=== PATIENT | female | born 1975 | race Caucasian/White ===

== ENCOUNTER 2025-07-05 16:05 | Outpatient (OUT) | payer BC, SELFPAY ==
--- OUTSIDE RECORDS SUMMARY | 2025-06-22 12:30 | XMS_ITS | Encounter Summary ---
Author Organization [facility] tem Address [id number] [address] [place] [address] Care Team Providers Care Chief Warden Name Role Phone Xin Wagoner MD Primary Care Provider [phone] Encounter Details Date Type Department Care Team (Latest Contact Info) Description 06/22/2025 12:30 PM EDT - 06/22/2025 12:59 PM EDT Hospital Encounter [facility] - Mammography/DEXA Imaging [address] [place] [phone] Abnormal mammogram Discharge Disposition: Home Social History Tobacco Use Types Packs/Day Years Used Date Smoking Tobacco: Former Cigarettes 1 14 0 01/30/1990 - 01/31/2004 Smokeless Tobacco: Never Alcohol Use Standard Drinks/Week Comments Yes 1 (1 standard drink = 0.6 oz pur e alcohol) PHQ-2 Answer Date Recorded Total Score 6 05/17/2025 Childcare Answer Date Recorded Childcare Unknown 03/18/2019 Employment Answer Date Recorded Employment Unknown 03/18/2019 Hunger Screening Answer Date Recorded Within the past 12 months we worried whether our food would run out before we got money to buy more. Never True 04/06/2025 Within the past 12 months th e food we bought just didn't last and we didn't have money to get more. Never True 04/06/2025 Purpose - Life Answer Date Recorded Purpose and direction in life Unknown Comments No Sex and Gender Information Value Date Recorded Sex Assigned at Not on file Legal Sex Female 11:42 AM EDT Gender Identity Not on file Sexual Orientation Not on file documented as of this encounter Medications at Time of Discharge PARoxetine (PAXIL) 20 mg tablet Take 1 tablet (20 mg total) by mouth in the morning. 30 tablet 11 05/17/2025 propranoloL (INDERAL) 10 mg tablet Take 1 tablet (10 mg total) by mouth 3 (three) times a day. rizatriptan (MAXALT) 10 mg tablet Take 1 tablet (10 mg total) by mouth in the morning. 11/12/2024 venlafaxine XR (EFFEXOR-XR) 75 mg 24 hr capsuleIndication s:Chronic migraine without aura without status migrainosus, not intractable,Vesti bular migraine Take 2 capsules (150 mg total) by mouth daily. 60 capsule 5 03/10/2021 documented as of this encounter Plan of Treatment Upcoming Encounters Date Type Department Care Team (Late st Contact Info) Description 07/20/2025 8:30 AM EDT Office Visit [facility] [address] [place] [phone] Blank Savage MD [address] [place] [address] documented as of this encounter Procedures Procedure Name Priority Date/Time Associated Diagnosis Comments MAMM DIAGNOSTIC UNILAT RT W CAD Routine 06/22/2025 12:44 PM EDT Abnormal mammogram documented in this encounter Results * (ABNORMAL) Mammography diagnostic unilateral right with CAD (06/22/2025 12:44 PM EDT) Anatomical Region Laterality Modality Breast Right Mammography 06/22/2025 1:55 PM EDT Narrative 06/22/2025 2:00 PM EDT CAITLIN THOMPSON 1975 [id number], [id number], [id number] EXAM: MAMM DIAGNOSTIC UNILAT RT W CAD, US BREAST RT LIMITED, US BREAST LT LIMITED, 06/22/2025 12:33 PM CLINICAL INDICATIONS: Abnormal mammogram, COMPARISON: Prior mammographic images from 11/03/2024 and older studies. TECHNIQUE: Supplemental views of the right breast were obtained for diagnostic workup. Digital tomosynthesis images were obtained, with creation of synthetic 2D views. Computer aided detection was utilized. FINDINGS: The breasts are heterogeneously dense, which may obscure small masses. Architectural distortion is present in the right breast 12:00 region, more prominent than on the previous study. This appears to be centered 2 to 3 cm from the nipple. There are no other suspicious masses, calcifications, or areas of architectural distortion. Bilateral Breast Ultrasound, Limited TECHNIQUE: Multiple real-time vee-scale images of the right breast in the retroareolar region were performed. Follow-up ultrasound images the left breast in the 6:00 region were also performed. Color Doppler was utilized to assess vascular flow. FINDINGS: Ultrasound images of the right breast centered at the 12:00 region show areas of irregularity measuring up to 1 cm most notably in the 12:00 region. There is no definite correlate with the mammographic finding. The breast tissue appears dense. Imaging of the left proximal was targeted to the 6:00 region in the area of previous complex cystic abnormality. An ovoid mass has a slightly lobulated margins with some areas of posterior acoustic enhancement and shadowing. On real-time evaluation of this is felt to be primarily anechoic. No color Doppler flow is demonstrated within the area. It currently measures 1.1 x 0.8 x 0.5 cm. Previous measurements were 1.3 x 1.2 x 0.9 cm. COMBINED IMPRESSION: 1. Architectural distortion in the right breast. Stereotactic biopsy recommended for further evaluation. 2. Complex cystic lesion in the left breast 6:00 region appears slightly smaller than on the previous study. Six-month follow-up evaluation recommended for further assessment BI-RADS: BI-RADS 4 - Suspicious RECOMMENDATION: Biopsy is recommended. Results and recommendations were discussed with the patient. Finalized by Kyle Edmondson MD on 06/22/2025 2:00 PM 4 c BIOPSY FDA Accredited Performing Facility: [facility] - Mammography/DEXA Imaging [address] [facility] [address] Procedure Note Kyle Edmondson MD - 06/22/2025 CAITLIN THOMPSON 1975 [id number], [id number], [id number] EXAM: MAMM DIAGNOSTIC UNILAT RT W CAD, US BREAST RT LIMITED, US BREAST LTLIMITED, 06/22/2025 12:33 PM CLINICAL INDICATIONS: Abnormal mammogram, COMPARISON: Prior mammographic images from 11/03/2024 and older studies. TECHNIQUE: Supplemental views of the right breast were obtained for diagnosticworkup. Digital tomosynthesis images were obtained, with creation ofsynthetic 2D views. Computer aided detection was utilized. FINDINGS: The breasts are heterogeneously dense, which may obscure small masses. Architectural distortion is present in the right breast 12:00 region, moreprominent than on the previous study. This appears to be centered 2 to 3cm from the nipple. There are no other suspicious masses, calcifications, or areas ofarchitectural distortion. Bilateral Breast Ultrasound, Limited TECHNIQUE: Multiple real-time vee-scale images of the right breast in theretroareolar region were performed. Follow-up ultrasound images the leftbreast in the 6:00 region were also performed. Color Doppler was utilizedto assess vascular flow. FINDINGS: Ultrasound images of the right breast centered at the 12:00 region showareas of irregularity measuring up to 1 cm most notably in the 12:00region. There is no definite correlate with the mammographic finding. Thebreast tissue appears dense. Imaging of the left proximal was targeted to the 6:00 region in the areaof previous complex cystic abnormality. An ovoid mass has a slightlylobulated margins with some areas of posterior acoustic enhancement andshadowing. On real-time evaluation of this is felt to be primarilyanechoic. No color Doppler flow is demonstrated within the area. It currently measures 1.1 x0.8 x 0.5 cm. Previous measurements were 1.3 x 1.2 x 0.9 cm. COMBINED IMPRESSION: 1. Architectural distortion in the right breast. Stereotactic biopsyrecommended for further evaluation. 2. Complex cystic lesion in the left breast 6:00 region appears slightlysmaller than on the previous study. Six-month follow-up evaluationrecommended for further assessment BI-RADS: BI-RADS 4 - Suspicious RECOMMENDATION: Biopsy is recommended. Results and recommendations were discussed with the patient. Finalized by Kyle Edmondson MD on 06/22/2025 2:00 PM 4 c BIOPSY FDA Accredited Performing Facility: [facility] - Mammography/DEXA Imaging [address] [facility] [address] Xin Wagoner MD IMG MAMMOGRAPHY ORDERABLES Fin al Result documented in this encounter Visit Diagnoses Diagnosis Abnormal mammogram Abnormal mammogram, unspecified documented in this encounter Additional Health Concerns Assessment Noted Time PHQ-9 Depression Total Score: 6 05/17/20 25 8:23 AM EDT A Body Mass Index follow-up plan has been documented for the patient 03/10/2021 4:36 PM EDT documented as of this encounter Care Teams Chief Warden Relationship Specialty Start Date End Date Xin Wagoner MD [address] [place] [id number] PCP - General Family Medicine 03/30/25 documented as of this encounter
--- OUTSIDE RECORDS SUMMARY | 2025-06-22 13:00 | XMS_ITS | Encounter Summary ---
Author Organization [facility] tem Address [id number] [address] [place] [address] Care Team Providers Care Loader Demolder Name Role Phone Xin Wagoner MD Primary Care Provider Encounter Details Date Type Department Care Team (Latest Contact Info) Description 06/22/2025 1:00 PM EDT - 06/22/2025 11:59 PM EDT Hospital Encounter [facility] - Ultrasound [address] [place] [address] Mass of breast, unspecified laterality; Abnormal mammogram Discharge Disposition: Home Social History [...] EDT Office Visit [facility] [address] [place] [address] Blank Savage MD [address] [place] [address] documented as of this encounter Procedures Procedure Name Priority Date/Time Associated Diagnosis Comments US BREAST RT LIMITED Routine 06/22/2025 1:19 PM EDT Abnormal mammogram US BREAST LT LIMITED Routine 06/22/2025 1:19 PM EDT Mass of breast, unspecified laterality documented in this encounter Results * (ABNORMAL) Ultrasound breast limited right (06/22/2025 1:19 PM EDT) Anatomical Region Laterality Modality Breast Right Ultrasound 06/22/2025 1:55 PM EDT Narrative 06/22/2025 2:00 PM EDT CAITLIN THOMPSON 1975 [id number], [id number], [id number] EXAM: MAMM DIAGNOSTIC UNILAT RT W CAD, [...] on 06/22/2025 2:00 PM 4 c BIOPSY Procedure Note Kyle Edmondson MD - 06/22/2025 CAITLIN THOMPSON 1975 [id number], [id number], [id number] EXAM: MAMM DIAGNOSTIC UNILAT RT W CAD, [...] on 06/22/2025 2:00 PM 4 c BIOPSY us Kyle Edmondson MD IMG US ORDERABLES Final Resul t * (ABNORMAL) Ultrasound breast limited left (06/22/2025 1:19 PM EDT) Anatomical Region Laterality Modality Breast Left Ultrasound 06/22/2025 1:55 PM EDT Narrative 06/22/2025 2:00 PM EDT CAITLIN THOMPSON 1975 [id number], [id number], [id number] EXAM: MAMM DIAGNOSTIC UNILAT RT W CAD, [...] on 06/22/2025 2:00 PM 4 c BIOPSY Procedure Note Kyle Edmondson MD - 06/22/2025 CAITLIN THOMPSON 1975 [id number], [id number], [id number] EXAM: MAMM DIAGNOSTIC UNILAT RT W CAD, [...] on 06/22/2025 2:00 PM 4 c BIOPSY us Xin Wagoner MD [facility] US ORDERABLES Final Result documented in this encounter Visit Diagnoses Diagnosis Mass of breast, unspecified laterality Abnormal mammogram Abnormal mammogram, unspecified documented in this encounter Additional Health Concerns Assessment Noted Time PHQ-9 Depression Total Score: 6 05/17/20 25 8:23 AM EDT A Body Mass Index follow-up plan has been documented for the patient 03/10/2021 4:36 PM EDT documented as of this encounter Care Teams Loader Demolder Relationship Specialty Start Date End Date Xin Wagoner MD [address] [place] [address] PCP - General Family Medicine 03/30/25 documented as of this encounter
--- NOTE | 2025-07-05 | XR_ITS ---
The [address] [address] Patient Name: JANET ABRAHAM MRN: [id number] date: 1975 Sex: F Assigned Patient Location: [facility] Current Patient Location: [facility] Accession/Order Number: [id number] Exam Date: 07/05/2025 16:21 Report Date: 07/05/2025 17:27 At the request of: SUSHIL OTT MD Procedure: XR abdomen 1V Single view of abdomen COMPARISON: None HISTORY: Flank pain, bilateral, 5 days THORAX: Lung bases unremarkable. FREE AIR: Supine position limits assessment BOWEL: No gaseous intestinal distention. STOOL: Moderate burden of stool throughout the colon RENAL STONES: No significant stones present. VASCULAR CALCIFICATIONS: Unremarkable SOFT TISSUE: Unremarkable BONES: Unremarkable POSTSURGICAL CHANGES: Right upper quadrant surgical clips XR/XR abdomen 1V IMPRESSION: Constipation Impression dictated by: Santiago sAtorga M.D. 07/05/2025 5:27 PM Dictation Location: [facility] Electronically authenticated by: [id number] Y Date: 07/05/2025 17:27
--- OUTSIDE RECORDS SUMMARY | 2025-07-05 08:26 | XMS_ITS | Encounter Summary ---
Author Organization [facility] tem Address [id number] [address] [place] [address] Care Team Providers Care Hand Rug Cleaner Name Role Phone Xin Wagoner MD Primary Care Provider [phone] Encounter Details Date Type Department Care Team (Latest Contact Info) Description 07/05/2025 8:26 AM EDT Hospital Encounter [facility] [address] [place] [phone] Abnormal mammogram Social History Tobacco Use Types Packs/Day Years [...] on file documented as of this encounter Last Filed Vital Signs Vital Sign Reading Time Taken Comments Blood Pressure - - Pulse - - Temperature - - Respiratory Rate - - Oxygen Saturation - - Inhaled Oxygen Concentration - - Weight 57.2 kg (126 lb) 07/05/2025 8:30 AM EDT Height 154.9 cm (5' 1 ) 07/05/2025 8:30 AM EDT Body Mass Index 23.81 07/05/2025 8:30 AM EDT documented in this encounter Plan of Treatment Upcoming Encounters Date Type Department Care Team (Late st Contact Info) Description 07/20/2025 8:30 AM EDT Office Visit [facility] [address] [place] [phone] Blank Savage MD [address] [place] [address] Pending Results Name Type Priority Associated Diagnoses Date /Time Surgical Pathology Pathology and Cytology Routine Abnormal mammogram 07/05/2025 9:02 AM EDT Scheduled Orders Name Type Priority Associated Diagnoses Order Schedule Surgical Pathology Pathology and Cytology Routine Abnormal mammogram Release Upon Ordering for 1 Occurrences starting 07/05/2025, 1 completed documented as of this encounter Procedures Procedure Name Priority Date/Time Associated Diagnosis Comments MAMM BX BREAST STEREO GUID INITIAL RT Routine 07/05/2025 8:50 AM EDT Abnormal mammogram documented in this encounter Results * Mammography biopsy breast stereotactic guidance initial right (07/05/2025 8:50 AM EDT) Anatomical Region Laterality Modality Breast Right Mammography 07/05/2025 9:20 AM EDT Narrative 07/05/2025 9:29 AM EDT CAITLIN THOMPSON 1975 [id number], [id number] EXAM: MAMM BX BREAST STEREO GUID INITIAL RT, MAMM POST BX DIAG UNI RT, CLINICAL INDICATIONS: Abnormal mammogram, architectural distortion of the 12:00 right breast at anterior depth PERFORMING PHYSICIAN: Selena Correa MD COMPARISON: Mammogram and ultrasound 06/22/2025 PROCEDURE: The risks, benefits, and alternatives of the procedure were explained in detail to the patient and both verbal and written informed consent were obtained. A timeout was performed verifying the correct patient, site and procedure. Position: The patient was positioned prone using a dedicated stereotactic unit. The architectural distortion in the 12:00 of the right breast were targeted with mammographic guidance. Procedure: The overlying skin was cleansed and the skin and subcutaneous tissues anesthetized with 1% lidocaine solution. It was noted that the tissue at this location was extremely dense and difficult infiltrate with the lidocaine. The approach was from CC, above. A small sharon was placed in the skin with a #11 scalpel. A 10-gauge biopsy needle with vacuum-assistance was inserted into the target and 1 core samples were obtained and subsequently placed in formalin. The patient had persistent pain throughout the numbing process. Additional lidocaine was administered totaling 20 mL at the biopsy site. Patient had significant pain with singular biopsy and the procedure was ended. A [employer] T3 biopsy clip was deployed at the biopsy site. The biopsy device was then removed and handheld pressure applied until hemostasis was achieved. The estimated blood is minimal. The patient tolerated the procedure well, without evidence of immediate complications. Post-procedure: A 2D right digital mammogram in CC and ML projections was obtained for verification of clip deployment. Images were obtained in a separate room and interpreted on a dedicated mammography workstation. These images demonstrate the biopsy clip in the appropriate position at the biopsy site. There are surrounding postbiopsy changes. IMPRESSION: 1. Technically successful stereotactic biopsy of the asymmetry in the right breast. One sample was obtained due to persistent pain despite additional lidocaine. Pathology is pending. Suspicion for malignancy at this location is high and concordance will be evaluated closely. 2. Post procedure mammograms for marker placement. BIRADS Post Biopsy. 3. Consider diagnostic MRI for further evaluation of this extremely dense and suspicious tissue. Finalized by Selena Correa MD on 07/05/2025 9:29 AM 100 FDA Accredited Performing Facility: [facility] - [facility]ammography [address], [place] [id number] Procedure Note Selena Correa MD - 07/05/2025 CAITLIN THOMPSON 1975 [id number], [id number] EXAM: MAMM BX BREAST STEREO GUID INITIAL RT, MAMM POST BX DIAG UNI RT, CLINICAL INDICATIONS: Abnormal mammogram, architectural distortion of the12:00 right breast at anterior depth PERFORMING PHYSICIAN: Selena Correa MD COMPARISON: Mammogram and ultrasound 06/22/2025 PROCEDURE: The risks, benefits, and alternatives of the procedure were explained indetail to the patient and both verbal and written informed consent wereobtained. A timeout was performed verifying the correct patient, site andprocedure. Position: The patient was positioned prone using a dedicated stereotactic unit. Thearchitectural distortion in the 12:00 of the right breast were targetedwith mammographic guidance. Procedure: The overlying skin was cleansed and the skin and subcutaneous tissuesanesthetized with 1% lidocaine solution. It was noted that the tissue atthis location was extremely dense and difficult infiltrate with thelidocaine. The approach was from CC, above. A small sharon was placed in the skin witha #11 scalpel. A 10-gauge biopsy needle with vacuum-assistance wasinserted into the target and 1 core samples were obtained and subsequentlyplaced in formalin. The patient had persistent pain throughout the numbing process. Additional lidocaine was administered totaling 20 mL at thebiopsy site. Patient had significant pain with singular biopsy and theprocedure was ended. A [employer] T3 biopsy clip was deployed at the biopsysite. The biopsy device was then removed and handheld pressure applieduntil hemostasis was achieved. The estimated blood is minimal. The patienttolerated the procedure well, without evidence of immediatecomplications. Post-procedure: A 2D right digital mammogram in CC and ML projections was obtained forverification of clip deployment. Images were obtained in a separate roomand interpreted on a dedicated mammography workstation. These imagesdemonstrate the biopsy clip in the appropriate position at the biopsysite. There are surrounding postbiopsy changes. IMPRESSION: 1. Technically successful stereotactic biopsy of the asymmetry in theright breast. One sample was obtained due to persistent pain despiteadditional lidocaine. Pathology is pending. Suspicion for malignancy atthis location is high and concordance will be evaluated closely. 2. Post procedure mammograms for marker placement. BIRADS Post Biopsy. 3. Consider diagnostic MRI for further evaluation of this extremely denseand suspicious tissue. Finalized by Selena Correa MD on 07/05/2025 9:29 AM 100 FDA Accredited Performing Facility: [facility] - [facility]ammography [address] [place] [address] Xin Wagoner MD IMG MAMMOGRAPHY ORDERABLES Fin al Result documented in this encounter Visit Diagnoses Diagnosis Abnormal mammogram Abnormal mammogram, unspecified documented in this encounter Administered Medications Inactive Administered Medications - up to 3 most recent administrations Medication Order MAR Action Action Date Dose Rate Site lidocaine (XYLOCAINE) 10 mg/mL (1 %) injection 100 mg 100 mg (10 mL), infiltration, Once in imaging, local anesthesia, Starting on Sat07/05/25 at 0831, For 1 dose Given 07/05/2025 9:00 AM EDT 10 mL R ight Breast lidocaine (XYLOCAINE) 10 mg/mL (1 %) injection 50 mg 50 mg (5 mL), infiltration, Once in imaging, biopsy site anesthesia, Starting on Sat07/05/25 at 0830, For 1 dose Given 07/05/2025 8:57 AM EDT 5 mL Right Breast lidocaine (XYLOCAINE) 10 mg/mL (1 %) injection 50 mg 50 mg (5 mL), infiltration, Once in imaging, local anesthesia, Starting on Sat07/05/25 at 0902, For 1 dose Given 07/05/2025 9:02 AM EDT 5 mL Right Breast sodium chloride 0.9 % radiology injection 250 mL, intravenous, Once in imaging, pre/post contrast, Starting on Sat07/05/25 at 0831, For 1 dose Given 07/05/2025 9:02 AM EDT 250 mL Other documented in this encounter Additional Health Concerns Assessment Noted Time PHQ-9 Depression Total Score: 6 05/17/20 25 8:23 AM EDT A Body Mass Index follow-up plan has been documented for the patient 03/10/2021 4:36 PM EDT documented as of this encounter Care Teams Hand Rug Cleaner Relationship Specialty Start Date End Date Xin Wagoner MD [address] [place] [address] PCP - General Family Medicine 03/30/25 documented as of this encounter
--- OUTSIDE RECORDS SUMMARY | 2025-07-05 08:34 | XMS_ITS | Encounter Summary ---
Author Organization [facility] tem Address [id number] [address] [place] [address] Care Team Providers Care Utility Systems Repairer Operator Name Role Phone Xin Wagoner MD Primary Care Provider [phone] Encounter Details Date Type Department Care Team (Latest Contact Info) Description 07/05/2025 8:34 AM EDT Hospital Encounter [facility] [place] - M[facility]ography [address] [place] [id number] Abnormal mammogram Social History Tobacco Use Types [...] on file documented as of this encounter Plan of Treatment Upcoming Encounters Date Type Department Care Team (Late st Contact Info) Description 07/20/2025 8:30 AM EDT Office Visit [facility] [address] [place] [phone] Blank Savage MD [address] [place] [address] documented as of this encounter Procedures Procedure Name Priority Date/Time Associated Diagnosis Comments MAMM POST BX DIAG UNI RT Routine 07/05/2025 9:13 AM EDT Abnormal mammogram documented in this encounter Results * Mammography post biopsy diagnostic unilateral right (07/05/2025 9:13 AM EDT) Anatomical Region Laterality Modality Breast Right Mammography 07/05/2025 9:20 AM EDT Narrative 07/05/2025 9:29 AM EDT CAITLIN MENDEZ THOMPSON 1975 [id number], [id number] EXAM: MAMM BX BREAST STEREO GUID INITIAL [...] with the lidocaine. The approach was from , above. A small sharon was placed in [...] Correa MD on 07/05/2025 9:29 AM 100 [facility] Accredited Performing Facility: [facility] [place] - Mammography [address] [facility] [id number] Procedure Note Selena Correa MD - 07/05/2025 CAITLIN THOMPSON 1975 [id number], [id number] EXAM: MAMM BX BREAST STEREO GUID INITIAL [...] singular biopsy and theprocedure was ended. A Hydromark T3 biopsy clip [...] 9:29 AM 100 FDA Accredited Performing Facility: [facility] - Mammography [address] [id number] Selena Correa MD IMG MAMMOGRAPHY ORDERABLES Final Result documented in this encounter Visit Diagnoses Diagnosis Abnormal mammogram Abnormal mammogram, unspecified documented in this encounter Additional Health Concerns Assessment Noted Time PHQ-9 Depression Total Score: 6 05/17/20 25 8:23 AM EDT A Body Mass Index follow-up plan has been documented for the patient 03/10/2021 4:36 PM EDT documented as of this encounter Care Teams Utility Systems Repairer Operator Relationship Specialty Start Date End Date Xin Wagoner MD [address] [place], [place] [id number] PCP - General Family Medicine 03/30/25 documented as of this encounter
--- OUTSIDE RECORDS SUMMARY | 2025-07-05 16:17 | XMS_ITS | Clinical Summary ---
Author Organization [facility] Address [address] [place] [address] Care Team Providers Care Lead Customer Service Representative Name Role Phone Xin Wagoner MD Primary Care Provider [phone] Allergies No known active allergies Medications venlafaxine (Effexor) 37.5 MG tablet Active rizatriptan (Maxalt) 10 MG tablet Take 10 mg by mouth Daily 11/12/19 25 Active Rimegepant Sulfate 75 MG tablet dispersible Take by mouth Acti ve triamterene-hyd roCHLOROthiazid e (Dyazide) 37.5-25 MG capsuleIndicati ons:Meniere's disease of right ear Take 1 capsule by mouth in the morning. 90 capsule 3 02/10/20 25 026 Active meclizine (Antivert) 25 MG tabletIndicatio ns:Meniere's disease of right ear TAKE 1 TABLET (25 MG) BY MOUTH 3 TIMES A DAY NEEDED FOR DIZZINESS FOR UP TO 10 DAYS 30 tablet 06/21/20 25 Active meclizine (Antivert) 25 MG tabletIndicatio ns:Meniere's disease of right ear Take 1 tablet (25 mg) by mouth 3 (three) times a day as needed for dizziness for up to 10 days 30 tablet 02/10/20 25 025 Discontinued Active Problems Problem Noted Date Diagnosed Date Pain in limb 11/23/2024 Chronic migraine without aur a without status migrainosus, not intractable 03/10/2021 Vestibular migraine 03/10/2021 Encounters Date Type Department Care Team Description 06/21/2025 Refill [facility] [address] [place] [phone] Chelle Wetzel MD Meniere's disease of right ear from Last 3 Months Family History Medical History Relation Name Comments Hypertension Father Diabetes Mother Hypertension Mother Relation Name Status Comments Father Alive Mother Alive Social History Tobacco Use Types Packs/Day Years Used Date Smoking Tobacco: Former Cigarettes Smokeless Tobacco: Never Tobacco Cessation:Counseling Given: Not Answered Alcohol Use Standard Drinks/Week Comments Yes 0 (1 standard drink = 0.6 oz pur e alcohol) social Comments Unknown Sex and Gender Information Value Date Recorded Sex Assigned at Not on file Legal Sex Female 10:59 PM EDT Gender Identity Not on file Sexual Orientation Not on file Last Filed Vital Signs Vital Sign Reading Time Taken Comments Blood Pressure 163/92 02/09/2025 3:24 PM EDT Pulse 100 02/09/2025 3:24 PM EDT Temperature - - Respiratory Rate - - Oxygen Saturation - - Inhaled Oxygen Concentration - - Weight 54.9 kg (121 lb) 02/09/2025 3:24 PM EDT Height 154.9 cm (5' 1 ) 02/09/2025 3:24 PM EDT Body Mass Index 22.86 02/09/2025 3:24 PM EDT Plan of Treatment Health Maintenance Due Date Last Done Comments CT Colonography 1973 Colonoscopy 1973 Colorectal Cancer Screening 1973 FIT-DNA 1973 FIT 1973 FOBT 1973 Sigmoidoscopy 1973 HPV/Cotest 12/24/2003 Cervical Cancer Screening 05/04/2025 Pap Smear 05/04/2025 05/04/2022 Influenza Vaccine (#1) 2025 10/05/2024, 2019 Mammogram 11/03/2025 11/03/2024, 06/16/2018 Insurance BS Care Teams Lead Customer Service Representative Relationship Specialty Start Date End Date Xin Wagoner MD [address] [place] [address] PCP - General Family Medicine 02/04/25
--- OUTSIDE RECORDS SUMMARY | 2025-07-05 16:17 | XMS_ITS | Clinical Summary ---
Author Organization [facility] Address [address] [place], [place] [id number] Care Team Providers Care Cytopathology Technologist Name Role Phone Rene Mcqueen Primary Care Provider Social History Tobacco Use Types Packs/Day Years Used Date Smoking Tobacco: Never Assessed Comments No Sex and Gender Information Value Date Recorded Sex Assigned at Not on file Legal Sex Female 10:00 AM EST Gender Identity Not on file Sexual Orientation Not on file Last Filed Vital Signs Vital Sign Reading Time Taken Comments Blood Pressure 102/60 07/13/2003 3:00 PM EDT Pulse 84 07/13/2003 3:00 PM EDT Temperature 37.1 C (98.8 F) 07/13/2003 3:00 PM EDT Respiratory Rate - - Oxygen Saturation - - Inhaled Oxygen Concentration - - Weight 42 kg (92 lb 9.5 oz) 07/13/2003 3:00 PM E DT Height - - Body Mass Index - - Plan of Treatment Health Maintenance Due Date Last Done Comments Anxiety Screening 12/24/1991 Depression Screening 12/24/1991 HIV Screening 12/24/1991 DTaP,Tdap,Td Vaccine (1 - Tdap) 1992 Hepatitis B Vaccine (1 of 3 - 19+ 3-dose series) 12/23 Cervical Cancer Screening [address] Colonography 2018 Cologuard (FIT-DNA) 2018 Colonoscopy 2018 Colorectal Cancer Screening 2018 Diabetes Screening 2018 07/13/2003 Fecal Occult Blood 2018 Lipid Screening 2018 Sigmoidoscopy 2018 Pneumococcal Vaccine: 50+ (1 of 1 - PCV) 12/24/2023 Shingrix Vaccine (1 of 2) 12/24/2023 Influenza Vaccine (#1) 2025 Hepatitis C Screening Completed 07/13/2003 Procedures Procedure Name Priority Date/Time Associated Diagnosis Comments HEP REMOTE PANEL BL Routine 07/13/2003 4 :38 PM EDT Other Malaise And Fatigue COMPREHENSIVE METABOLIC PANEL Routine 07/13/2003 4:38 PM EDT Other Malaise And Fatigue from Last 3 Months or Most Recently Relevant to Health Maintenance Results * HEP REMOTE PANEL BL (07/13/2003 4:38 PM EDT) Hep B Core Ab, Total Negative NEG [facility] Hep C Antibody IA Negative NEG [facility] HBsAg Negative NEG [facility] Hep B Surface Ab, Qual Negative NEG [facility] Comment: A negative Hepatitis B Surface Antibody is indicative of: 1)no prior exposure to HBV, 2)lack of antibody response to an acute or chronic HBV infection, 3)lack of antibody response to HBV vaccination, or, 4)loss of immunity that followed either vaccination or infection. Interpretation (Hep Remote Pnl) These results are negative for previous exposure to the hepatitis B and C [facility] Comment:viruses. Blood specimen (specimen) BLOOD SPECIMEN / Unknown 07/13/2003 4:38 PM EDT [facility] (Hist) [facility] Final Result Performing Organization Address City/State/[facility] Co de Phone Number [facility] [address] [place] [address] * (ABNORMAL) COMP METABOLIC PANEL (07/13/2003 4:38 PM EDT) Protein, Total 8.1 6.0 - 8.4 g/dL [facility] Albumin 5.2(A) 3.5 - 5.0 g/dL [facility] Calcium 10.1 8.5 - 10.5 mg/dL [facility] Bilirubin, Total 0.4 0.0 - 1.5 mg/dL [facility] Alkaline Phosphatase 46 40 - 150 U/L [facility] AST 17 7 - 40 U/L [facility] Glucose 87 65 - 110 mg/dL [facility] BUN 14 8 - 25 mg/dL [facility] Creatinine 0.6(A) 0.7 - 1.4 mg/dL [facility] Sodium 141 132 - 148 mmol/L [facility] Potassium 4.1 3.5 - 5.0 mmol/L [facility] Chloride 104 98 - 110 mmol/L [facility] CO2 25 24 - 32 mmol/L [facility] Anion Gap 12 0 - 15 mmol/L [facility] ALT 16 0 - 45 U/L [facility] Blood specimen (specimen) BLOOD SPECIMEN / Unknown 07/13/2003 4:38 PM EDT us [facility] Final Result [facility] [address] [place] [address] from Last 3 Months or Most Recently Relevant to Health Maintenance Insurance [facility] Care Teams Cytopathology Technologist Relationship Specialty Start Date End Date Rene Mcqueen DO [address] [place] [address] PCP - General 07/05/03
--- OUTSIDE RECORDS SUMMARY | 2025-07-05 16:17 | XMS_ITS | Clinical Summary ---
Author Organization [employer] tem Address [id number] [address] [place] [address] Care Team Providers Care Log Hooker Name Role Phone Xin Wagoner MD Primary Care Provider [phone] Allergies Active Allergy Reactions Criticality Noted Date Comments No Known Drug Allergies 01/30/2017 Medications venlafaxine XR (EFFEXOR-XR) 75 mg 24 hr capsuleIndicati ons:Chronic migraine without aura without status migrainosus, not intractable,Ves tibular migraine Take 2 capsules (150 mg total) by mouth daily. 60 capsule 5 03/10/2021 Active rizatriptan (MAXALT) 10 mg tablet Take 1 tablet (10 mg total) by mouth in the morning. 11/12/2024 Active propranoloL (INDERAL) 10 mg tablet Take 1 tablet (10 mg total) by mouth 3 (three) times a day. Active PARoxetine (PAXIL) 20 mg tablet Take 1 tablet (20 mg total) by mouth in the morning. 30 tablet 11 05/17/2025 Active Active Problems Problem Noted Date Diagnosed Date Vestibular migraine 03/10/2021 Chronic migraine without aur a without status migrainosus, not intractable 03/10/2021 Encounters Date Type Department Care Team Description 07/05/2025 8:34 AM EDT Hospital Encounter [facility] Mammography [address] [place] [phone] Abnormal mammogram 07/05/2025 8:26 AM EDT Hospital Encounter [facility] - Mammography [address] [place] [phone] Abnormal mammogram 07/04/2025 Travel 06/22/2025 1:00 PM EDT - 06/22/2025 11:59 PM EDT Hospital Encounter [facility] - Ultrasound [address] [place] [address] Mass of breast, unspecified laterality; Abnormal mammogram Discharge Disposition: Home 06/22/2025 12:30 PM EDT - 06/22/2025 12:59 PM EDT Hospital Encounter [facility] - Mammography/DEXA Imaging [address] [place] [address] Abnormal mammogram Discharge Disposition: Home 06/22/2025 Travel 05/17/2025 8:30 AM EDT Office Visit [facility] [place] [address] Blank Savage MD Encounter for gynecological examination (general) (routine) without abnormal findings (Primary Dx) 05/17/2025 Travel 04/19/2025 Results Follow-Up [facility] [address] Blank Savage MD CBC without diff, Follicle stimulating hormone, Luteinizing hormone, Additional followed-up results: 7 04/16/2025 Travel 04/06/2025 3:30 PM EDT Office Visit [facility]col[facility] [place] [address] Blank Savage MD Menopause syndrome (Primary Dx) 04/06/2025 Travel from Last 3 Months Immunizations Immunization Administration Dates Next Due COVID-19, mRNA, LNP-S, PF, 100mcg/0.5mL Dose ,10/26/2020 Family History Medical History Relation Name Comments Hypertension Father Hypertension Mother Breast cancer Neg Hx Relation Name Status Comments Father Mother Social History Tobacco Use Types Packs/Day Years Used Date Smoking Tobacco: Former Cigarettes 1 14 0 01/30/1990 - 01/31/2004 Smokeless Tobacco: Never Tobacco Cessation:Counseling Given: Not Answered Alcohol Use Standard Drinks/Week Comments Yes 1 [...] Sign Reading Time Taken Comments Blood Pressure 124/84 05/17/2025 8:25 AM EDT Pulse 78 03/30/2025 5:30 PM EDT Temperature 36.7 C (98.1 F) 03/30/2025 2:54 PM EDT Respiratory Rate 21 03/30/2025 5:30 PM EDT Oxygen Saturation 96% 03/30/2025 5:30 PM EDT Inhaled Oxygen Concentration - - Weight 57.2 kg (126 lb) 07/05/2025 8:30 AM EDT Height 154.9 cm (5' 1 ) 07/05/2025 8:30 AM EDT Body Mass Index 23.81 07/05/2025 8:30 AM EDT Plan of Treatment Upcoming Encounters Date Type Department Care Team (Late st Contact Info) Description 07/20/2025 8:30 AM EDT Office Visit [facility] [address] [place] [address] Blank Savage MD [address] [place], [place] [id number] Health Maintenance Due Date Last Done Comments DTaP,Tdap and Td Vaccines (4 - Td or Tdap) 02/25/2018 02/26/2008, 10/26/1975, 08/24/1975 Zoster (Shingles) Vaccine (1 of 2) 12/24/2023 Pap Smear 05/04/2025 05/04/2022, 05/04/2022 COVID-19 Vaccine (3 - 2024-2 6 season) 2025 11/24/2020, 10/26/2020 Influenza Vaccine 06/07/2025 10/05/2024, , 08/03/2019 Adult BMI Screening 05/17/2026 07/05/2025 Depression Screening 05/17/2026 05/17/2025 Tobacco Screening 05/17/2026 05/17/2025 Medical Devices Not on file Procedures Procedure Name Priority Date/Time Associated Diagnosis Comments MAMM POST BX DIAG UNI RT Routine 07/05/2025 9:13 AM EDT Abnormal mammogram MAMM BX BREAST STEREO GUID INITIAL RT Routine 07/05/2025 8:50 AM EDT Abnormal mammogram US BREAST RT LIMITED Routine 06/22/2025 1:19 PM EDT Abnormal mammogram US BREAST LT LIMITED Routine 06/22/2025 1:19 PM EDT Mass of breast, unspecified laterality MAMM DIAGNOSTIC UNILAT RT W CAD Routine 06/22/2025 12:44 PM EDT Abnormal mammogram HEMOGLOBIN A1C Routine 04/16/2025 9:37 AM EDT Menopause syndrome COMPREHENSIVE METABOLIC PANEL Routine 04/16/2025 9:37 AM EDT Menopause syndrome VITAMIN D 25 HYDROXY Routine 04/16/2025 9:37 AM EDT Menopause syndrome LIPID PROFILE Routine 04/16/2025 9:37 AM EDT Menopause syndrome TSH Routine 04/16/2025 9:37 AM EDT Menopause syndrome T4, FREE Routine 04/16/2025 9:37 AM EDT Menopause syndrome PROLACTIN Routine 04/16/2025 9:37 AM EDT Menopause syndrome LUTEINIZING HORMONE Routine 04/16/2025 9 :37 AM EDT Menopause syndrome FOLLICLE STIMULATING HORMONE Routine 04/16/2025 9:37 AM EDT Menopause syndrome CBC (NO DIFF) Routine 04/16/2025 9:37 AM EDT Menopause syndrome HIGH RISK HPV W/JANNET Routine 05/04/2022 8:53 AM EDT from Last 3 Months or Most Recently Relevant to Health Maintenance Results * Mammography post biopsy diagnostic unilateral right (07/05/2025 9:13 AM EDT) Anatomical Region Laterality Modality Breast Right Mammography 07/05/2025 9:20 AM EDT Narrative 07/05/2025 9:29 AM EDT CAITLIN THOMPSON 1975 [id number], [id number] EXAM: MAMM BX BREAST STEREO GUID INITIAL [...] 9:29 AM 100 FDA Accredited Performing Facility: [facility] - Mammography [address] , [place] [id number] Procedure Note Selena Correa MD - 07/05/2025 CAITLIN THOMPSON 1975 [id number], [id number] EXAM: MAMM BX BREAST STEREO GUID INITIAL [...] singular biopsy and theprocedure was ended. A [employer] T3 biopsy clip was deployed at the [...] Correa MD on 07/05/2025 9:29 AM 100 [facility] Accredited [facility]forming Facility[facility] [address] [place], [facility] [address] Selena Correa MD IMG MAMMOGRAPHY ORDERABLES Final Result * Mammography biopsy breast stereotactic guidance initial right (07/05/2025 8:50 AM EDT) Anatomical Region Laterality Modality Breast Right Mammography 07/05/2025 9:20 AM EDT Narrative 07/05/2025 9:29 AM EDT CAITLIN THOMPSON 1975 [id number], [id number] EXAM: MAMM BX BREAST STEREO GUID INITIAL [...] Correa MD on 07/05/2025 9:29 AM 100 [facility] Accredited Performing Facility: [facility] - Mammography [address] [place], [facility] [address] Procedure Note Selena Correa MD - 07/05/2025 CAITLIN THOMPSON 1975 [id number], [id number] EXAM: MAMM BX BREAST STEREO GUID INITIAL [...] singular biopsy and theprocedure was ended. A [employer] T3 biopsy clip was deployed at the [...] 9:29 AM 100 FDA Accredited Performing Facility: [facility] - Mammography [address] [place], [facility] [address] Xin Wagoner MD IMG MAMMOGRAPHY ORDERABLES Fin al Result * (ABNORMAL) Ultrasound breast limited right (06/22/2025 1:19 PM EDT) Anatomical Region Laterality Modality Breast Right Ultrasound 06/22/2025 1:55 PM EDT Narrative 06/22/2025 2:00 PM EDT CAITLIN THOMPSON 1975 [id number], [id number], [id number] EXAM: MAMM DIAGNOSTIC UNILAT RT W CAD, [...] Edmondson MD - 06/22/2025 CAITLIN THOMPSON 1975 [id number], [id number], [id number] EXAM: MAMM DIAGNOSTIC UNILAT RT W CAD, [...] 4 c BIOPSY us Kyle Edmondson MD [facility] US ORDERABLES Final Resul t * (ABNORMAL) Ultrasound breast limited left (06/22/2025 1:19 PM EDT) Anatomical Region Laterality Modality Breast Left Ultrasound 06/22/2025 1:55 PM EDT Narrative 06/22/2025 2:00 PM EDT CAITLIN THOMPSON 1975 [id number], [id number], [id number] EXAM: MAMM DIAGNOSTIC UNILAT RT W CAD, [...] Edmondson MD - 06/22/2025 CAITLIN THOMPSON 1975 [id number], [id number], [id number] EXAM: MAMM DIAGNOSTIC UNILAT RT W CAD, [...] on 06/22/2025 2:00 PM 4 c BIOPSY Xin Wagoner MD IM US ORDERABLES Final Result * (ABNORMAL) Mammography diagnostic unilateral right with CAD (06/22/2025 12:44 PM EDT) Anatomical Region Laterality Modality Breast Right Mammography 06/22/2025 1:55 PM EDT Narrative 06/22/2025 2:00 PM EDT CAITLIN THOMPSON 1975 [id number], [id number], [id number] EXAM: MAMM DIAGNOSTIC UNILAT RT W CAD, [...] 4 c BIOPSY FDA Accredited Performing Facility: [facility] - Mammography/DEXA Imaging [address] [facility] [address] Procedure Note Kyle Edmondson MD - 06/22/2025 CAITLIN THOMPSON 1975 [id number], [id number], [id number] EXAM: MAMM DIAGNOSTIC UNILAT RT W CAD, [...] 4 c BIOPSY FDA Accredited Performing Facility: [facility] - Mammography/DEXA Imaging [address] [facility] [address] us Xin Wagoner MD IMG MAMMOGRAPHY ORDERABLES Fin al Result * Vitamin D 25 hydroxy (04/16/2025 9:37 AM EDT) VITAMIN D 25 HYD TOT 50.0 30.0 - 100.0 ng/mL 04/16/2025 2:50 PM EDT [facility] Blood Venous blood / Unknown Venipuncture / Unknown 04/16/2025 9:37 AM EDT 04/16/2025 9:37 AM EDT [facility] - 04/16/2025 2:50 PM EDT Vitamin D status 25 [place] Vitamin D Deficiency <20 ng/mL Insufficiency 20-29 ng/mL Sufficiency 30-100 ng/mL Toxicity >100 ng/mL NOTE: A pediatric reference range has not been established by the tactical deception plans officer of this kit. The [place] [employer] recommends a Vitamin D level of = or >20ng/mL in infants and children. us Blank Savage MD LAB BLOOD ORDERABLES Final Res ult [facility] [address] [place] [address], [place] [phone] * Prolactin (04/16/2025 9:37 AM EDT) PROLACTIN 11.7 2.7 - 19.6 ng/mL 04/16/2025 2:41 PM EDT [facility] Blood Venous blood / Unknown Venipuncture / Unknown 04/16/2025 9:37 AM EDT 04/16/2025 9:37 AM EDT us Blank Savage MD LAB BLOOD ORDERABLES Final Res ult Performing Organization Address City/[facility]/ZIP Co de Phone Number [facility] [address] [place] [address], [place] [phone] * CBC without diff (04/16/2025 9:37 AM EDT) WBC 5.0 4 - 11 x10E9/L 04/16/2025 2:09 PM EDT [facility] RBC Count 4.35 3.8 - 5.2 X10E12/L 04/16/2025 2:09 PM EDT [facility] Hemoglobin 13.3 11.7 - 15.5 g/dL 04/16/2025 2:09 PM EDT [facility] Hematocrit 39.6 35 - 47 % 04/16/2025 2:09 PM EDT [facility] MCV 91 80 - 100 fL 04/16/2025 2:09 PM EDT [facility] MCH 30.5 27 - 34 pg 04/16/2025 2:09 PM EDT [facility] MCHC 33.5 32 - 36 g/dL 04/16/2025 2:09 PM EDT [facility] RDW 13.2 11.5 - 15 % 04/16/2025 2:09 PM EDT [facility] Platelet Count 247 150 - 450 X10E9/L 04/16/2025 2:09 PM EDT [facility] MPV 8.8 7 - 12 fL 04/16/2025 2:09 PM EDT [facility] Blood Venous blood / Unknown Venipuncture / Unknown 04/16/2025 9:37 AM EDT 04/16/2025 9:37 AM EDT us Blank Savage MD LAB BLOOD ORDERABLES Final Res ult [facility] [address] [place] [address], * TSH (04/16/2025 9:37 AM EDT) TSH 2.16 0.49 - 4.67 uIU/mL 04/16/2025 2:35 PM EDT [facility] Blood Venous blood / Unknown Venipuncture / Unknown 04/16/2025 9:37 AM EDT 04/16/2025 9:37 AM EDT us Blank Savage MD LAB BLOOD ORDERABLES Final Res ult [facility] [address] [place] [address], [place] [phone] * T4, free (04/16/2025 9:37 AM EDT) FREE T4 0.64 0.61 - 1.60 ng/dL 04/16/2025 2:42 PM EDT [facility] Blood Venous blood / Unknown Venipuncture / Unknown 04/16/2025 9:37 AM EDT 04/16/2025 9:37 AM EDT us Blank Savage MD LAB BLOOD ORDERABLES Final Res ult [facility] [address] [place] [address], * Hemoglobin A1c (04/16/2025 9:37 AM EDT) HEMOGLOBIN A1C 5.4 4.4 - 5.6 % 04/16/2025 2:59 PM EDT [facility] Comment: ADA Guidelines Result HgbA1c Normal : less than 5.7 % Prediabetes : 5.7 % to 6.4 % Diabetes : > 6.4 % Use with caution in patients with abnormal hemoglobin variants as the half-life of red blood cells and in vivo glycation rates are affected. EST. AVERAGE GLUCOSE 108 mg/dL 04/16/2025 2:59 PM EDT [facility] Blood Venous blood / Unknown Venipuncture / Unknown 04/16/2025 9:37 AM EDT 04/16/2025 9:37 AM EDT us Blank Savage MD LAB BLOOD ORDERABLES Final Res ult [facility] [address] [place] [address], * Luteinizing hormone (04/16/2025 9:37 AM EDT) LUTEINIZING HORMONE 61.7 mIU/mL 04/16/2025 3:04 PM EDT [facility] Blood Venous blood / Unknown Venipuncture / Unknown 04/16/2025 9:37 AM EDT 04/16/2025 9:37 AM EDT Narrative [facility] - 04/16/2025 3:04 PM EDT NORMAL FEMALE Follicular 2.1-10.9 mIU/mL Mid Cycle 19.2-103 mIU/mL Luteal 1.2-12.9 mIU/mL Post Soraida 10.9-58.6 mIU/mL Blank Savage MD LAB BLOOD ORDERABLES Final Res ult Performing Organization Address [facility] Co de Phone Number [facility] [address] [place] [address], * Follicle stimulating hormone (04/16/2025 9:37 AM EDT) FOLLICLE STIM HORMONE 82.7 mIU/mL 04/16/2025 3:03 PM EDT [facility] Blood Venous blood / Unknown Venipuncture / Unknown 04/16/2025 9:37 AM EDT 04/16/2025 9:37 AM EDT Narrative [facility] - 04/16/2025 3:03 PM EDT NORMAL FEMALE: Luteal 1.8-5.1 mIU/mL Follicular 3.8-8.8 mIU/mL Mid Cycle 4.5-22.5 mIU/mL Post Soraida 16.7-113.6 mIU/mL Blank Savage MD LAB BLOOD ORDERABLES Final Res ult Performing Organization Address City/[facility] Co de Phone Number [facility] [address] [place] [address], * (ABNORMAL) Lipid profile (04/16/2025 9:37 AM EDT) CHOLESTEROL 254(H) 150 - 200 mg/dL 04/16/2025 2:36 PM EDT [facility] TRIGLYCERIDE 89 27 - 150 mg/dL 04/16/2025 2:36 PM EDT [facility] HDL CHOLESTEROL 66 >39 mg/dL 2:36 PM EDT [facility] Comment: HDL <40 mg/dL - High Risk HDL > or = 40mg/dL- Desirable HDL >60 mg/dL - Negative Risk LDL (CALC) 170(H) <130 mg/dL 04/16/2025 2:36 PM EDT [facility] Comment: LDL <100 mg/dL - Desirable LDL >160 mg/dL - High Risk CHOLESTEROL:HDL 3.8 1.0 - 5.0 2:36 PM EDT [facility] VERY LOW LIPOPROTEIN 18 0 - 30 mg/dL 04/16/2025 2:36 PM EDT [facility] Blood Venous blood / Unknown Venipuncture / Unknown 04/16/2025 9:37 AM EDT 04/16/2025 9:37 AM EDT us Blank Savage MD LAB BLOOD ORDERABLES Final Res ult [facility] [address] [place] [id number], * Comprehensive metabolic panel (04/16/2025 9:37 AM EDT) SODIUM 142 134 - 146 mmol/L 04/16/2025 2:36 PM EDT [facility] POTASSIUM 4.2 3.5 - 5.0 mmol/L 04/16/2025 2:36 PM EDT [facility] CHLORIDE 103 98 - 109 mmol/L 04/16/2025 2:36 PM EDT [facility] CARBON DIOXIDE 31 22 - 32 mmol/L 04/16/2025 2:36 PM EDT [facility] ANION GAP 8 5 - 15 mmol/L 04/16/2025 2:36 PM EDT [facility] BLOOD UREA NITROGEN 10 5 - 23 mg/dL 04/16/2025 2:36 PM EDT [facility] CREATININE 0.68 0.40 - 1.00 mg/dL 04/16/2025 2:36 PM EDT [facility] Comment:METHOD TRACEABLE TO IDMS STANDARD GLUCOSE 96 65 - 99 mg/dL 04/16/2025 2:36 PM EDT [facility] CALCIUM 9.7 8.5 - 10.5 mg/dL 04/16/2025 2:36 PM EDT [facility] TOTAL PROTEIN 7.0 6.0 - 8.0 g/dL 04/16/2025 2:36 PM EDT [facility] ALBUMIN 4.3 3.2 - 5.3 g/dL 04/16/2025 2:36 PM EDT [facility] ALKALINE PHOSPHATASE 52 39 - 130 U/L 04/16/2025 2:36 PM EDT [facility] AST 18 <=41 U/L 04/16/2025 2:36 PM EDT [facility] ALT 16 <=31 U/L 04/16/2025 2:36 PM EDT [facility] BILIRUBIN,TOTAL 0.5 0.3 - 1.2 mg/dL 04/16/2025 2:36 PM EDT [facility] EGFR Non-Race Dependent >90 >=60 ml/min/1.7 3sq.m 04/16/2025 2:36 PM EDT [facility] Comment: Reported eGFR is based on the CKD-EPI 2020 equation that does not use a race coefficient. Blood Venous blood / Unknown Venipuncture / Unknown 04/16/2025 9:37 AM EDT 04/16/2025 9:37 AM EDT us Blank Savage MD LAB BLOOD ORDERABLES Final Res ult [facility] [address] [place] [address], * High risk HPV w/jannet (05/04/2022 8:53 AM EDT) Hpv specimen type ThinPrep 05/07/2022 8:54 AM EDT [facility] Hpv 16 Negative Negative^N egative 05/08/2022 12:50 PM EDT [facility] Hpv 18 Negative Negative^N egative 05/08/2022 12:50 PM EDT [facility] Other high risk hpv Negative Negative^N egative 05/08/2022 12:50 PM EDT [facility] Comment: HPV types 31,33,35,39,45,52,56,58,59,66 and 68 DNA were undetectable. THINP 05/04/2022 8:53 AM EDT 05/04/2022 8:53 AM EDT us [place] RETAIL LOSS PREVENTION SPECIALIST-TABLE COVER FOLDER LAB BLOOD ORDERABLES Fin al Result [facility] [address] [facility] [place] [address] from Last 3 Months or Most Recently Relevant to Health Maintenance Insurance [employer] Care Teams Log Hooker Relationship Specialty Start Date End Date Xin Wagoner MD [address] [place], [place] [id number] PCP - General Family Medicine 03/30/25
--- OUTSIDE RECORDS SUMMARY | 2025-07-05 16:17 | XMS_ITS | Encounter Summary ---
Author Organization [facility] tem Address [id number] [address] [place] [address] Care Team Providers Care Track Repairer Helper Name Role Phone Xin Wagoner MD Primary Care Provider [phone] Encounter Details Date Type Department Care Team (Latest Contact Info) Description 07/04/2025 Travel Social History Tobacco Use Types Packs/Day Years [...] EDT Office Visit [facility] [address] [address] Blank Savage MD [address] [place] [address] documented as of this encounter Visit Diagnoses Not on filedocumented in this encounter Additional Health Concerns Assessment Noted Time PHQ-9 Depression Total Score: 6 05/17/20 25 8:23 AM EDT A Body Mass Index follow-up plan has been documented for the patient 03/10/2021 4:36 PM EDT documented as of this encounter Care Teams Track Repairer Helper Relationship Specialty Start Date End Date Xin Wagoner MD [address] [place] [address] PCP - General Family Medicine 03/30/25 documented as of this encounter
--- OUTSIDE RECORDS SUMMARY | 2025-07-05 16:17 | XMS_ITS | Encounter Summary ---
Author Organization [facility] tem Address [id number] [address] [place] [address] Care Team Providers Care Development Technologist Name Role Phone Xin Wagoner MD Primary Care Provider Encounter Details Date Type Department Care Team (Latest Contact Info) Description 06/22/2025 Travel Social History Tobacco Use Types Packs/Day [...] EDT Office Visit [facility] [address] [place] [address] Blank Savage MD [address] [place] [place] [address] documented as of this encounter Visit Diagnoses Not on filedocumented in this encounter Additional Health Concerns Assessment Noted Time PHQ-9 Depression Total Score: 6 05/17/20 25 8:23 AM EDT A Body Mass Index follow-up plan has been documented for the patient 03/10/2021 4:36 PM EDT documented as of this encounter Care Teams Development Technologist Relationship Specialty Start Date End Date Xin Wagoner MD [address] [place] [address] PCP - General Family Medicine 03/30/25 documented as of this encounter
--- OUTSIDE RECORDS SUMMARY | 2025-07-05 16:17 | XMS_ITS | Encounter Summary ---
Author Organization [facility] Address [address] [facility] [place] [address] Care Team Providers Care Flight Dynamicist Name Role Phone Xin Wagoner MD Primary Care Provider [phone] Reason for Visit * Reason Comments Med Refill Encounter Details Date Type Department Care Team (Late st Contact Info) Description 06/21/2025 Refill [facility] [address] [facility] [address] [place] [phone] Chelle Wetzel MD [address] [facility] [address] [place] [address] Meniere's disease of right ear Social History Tobacco Use Types Packs/Day Years Used Date Smoking Tobacco: Former Cigarettes Smokeless Tobacco: Never Alcohol Use Standard Drinks/Week Comments Yes 0 (1 standard drink = 0.6 oz pur e alcohol) social Comments Unknown Sex and Gender Information Value Date Recorded Sex Assigned at Not on file Legal Sex Female 10:59 PM EDT Gender Identity Not on file Sexual Orientation Not on file documented as of this encounter Plan of Treatment Not on file documented as of this encounter Visit Diagnoses Diagnosis Meniere's disease of right ear documented in this encounter Care Teams Flight Dynamicist Relationship Specialty Start Date End Date Xin Wagoner MD [address] [place] [phone] PCP - General Family Medicine 02/04/25 documented as of this encounter
--- OUTSIDE RECORDS SUMMARY | 2025-07-05 16:17 | XMS_ITS | Encounter Summary ---
Author Organization [facility] [employer] Sys [employer] Address [id number] [address] [place] [address] Care Team Providers Care Software Asset Manager Name Role Phone Xin Wagoner MD Primary Care Provider [phone] Reason for Visit * Reason Onset Date Comments Schd new patient appt 01/17/2021 Encounter Details Date Type Department Care Team (Late st Contact Info) Description 01/17/2021 [facility] [address] [place] [id number] Breanna Ruiz new patient appt Social History Tobacco Use Types Packs/Day Years Used Date Smoking Tobacco: Former Cigarettes 1 14 0 01/30/1990 - 01/31/2004 Alcohol Use Standard Drinks/Week Comments Yes 1 (1 standard drink = 0.6 oz pur e alcohol) Childcare Answer Date Recorded Childcare Unknown 03/18/2019 Employment Answer Date Recorded Employment Unknown 03/18/2019 Purpose - Life Answer Date Recorded Purpose and direction in life Unknown Comments No Sex and Gender Information Value Date Recorded Sex Assigned at Not on file Legal Sex Female 11:42 AM EDT Gender Identity Not on file Sexual Orientation Not on file documented as of this encounter Miscellaneous Notes * Telephone Encounter - Breanna Ruiz - 01/17/2021 1:31 PM EDT Received Referral 1st attempt- left voicemail Referred by:Axel Avendano DO DX: Migraine and Vertigo Patient prefers to see Dr. Hopkins in [place] due to patient's location documented in this encounter Plan of Treatment Upcoming Encounters Date Type Department Care Team (Late st Contact Info) Description 07/20/2025 8:30 AM EDT Office Visit [facility] [address] [place] [phone] Blank Savage MD [address] [place] [id number] documented as of this encounter Visit Diagnoses Not on filedocumented in this encounter Additional Health Concerns Infection Onset Date Last Indicated Resolved Time COVID-19 Rule-Out 10/09/2021 10/09/2021 10/09/2021 8:13 PM EST COVID-19 Positive 10/09/2021 10/09/2021 10/30/2021 11:12 PM EST documented as of this encounter Care Teams Software Asset Manager Relationship Specialty Start Date End Date Xin Wagoner MD [address] [place] [phone] PCP - General Family Medicine 03/30/25 documented as of this encounter
== END 2025-07-05 16:06 | disposition home or self-care (01) ==
PROVIDERS: PCP Family Medicine; Visit Provider Family Medicine
DX: R10.9 Unspecified abdominal pain (principal); K59.00 Constipation, unspecified
CPT/HCPCS: 74018